=== PATIENT | male | born 1985 | race Two or more races ===

== ENCOUNTER → 2016-08-04 | Outpatient (CLI) | payer BC | LOC: LAB 09:29 | PROVIDERS: ATTEND Internal Medicine | DX: E66.9 Obesity, unspecified (principal) | CPT/HCPCS: 36415; 83036; 84443 ==

== ENCOUNTER → 2016-08-27 | Outpatient (CLI) | payer BC ==
[2016-08-28 07:44] LABS: FOLLICLE STIMULATING HORMONE 26.7 mIU/mL (1.5-12.4); LUTEINIZING HORMONE 13.5 mIU/mL (1.7-8.6)
[2016-08-29 12:27] LABS: TESTOSTERONE FREE (DIRECT) 5.6 pg/mL (8.7-25.1)
== END ==
LOC: OD 08:41
PROVIDERS: ATTEND Urology
DX: N46.01 Organic azoospermia (principal); E34.52 Partial androgen insensitivity syndrome
CPT/HCPCS: 36415; 83001; 83002; 84146; 84402; 84403

== ENCOUNTER → 2016-09-01 | Outpatient (CLI) | payer BC ==
--- NOTE | 2016-09-01 19:50 | RADIOLOGY REPORT (SQ) ---
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 TECHNIQUE: Multiplanar imaging includes noncontrasted T1, T2, FLAIR, diffusion with ADC map and post gadolinium contrast T1 sequences. Images stored on PACS. CONTRAST TYPE AND DOSE: 20 mL MultiHance RENAL FUNCTION: None required. The patient is less than 50 years old. LIMITATIONS: None. FINDINGS: ANATOMY: No anomalies. Normal vascular flow voids. Pituitary fossa normal. CSF SPACES: Normal in size and contour. No hemorrhage. CEREBRUM: Sulci and gyri normal in size and contour. Normal white matter signal on FLAIR imaging. No evidence of hemorrhage, mass, or extraaxial fluid collection. No abnormal enhancement post contrast. POSTERIOR FOSSA: No signal alteration. No hemorrhage. No edema, masses, or mass effect. Internal dorene tory canals, cerebellopontine angles, mastoids normal. No enhancing lesions. No abnormal enhancement post contrast. DIFFUSION IMAGING: Negative for acute or subacute infarction. ORBITS: No masses. Globes normal. PARANASAL SINUSES: There is ethmoid and maxillary sinusitis. OTHER: No other significant finding. IMPRESSION: NORMAL MRI OF THE BRAIN WITHOUT AND WITH INTRAVENOUS GADOLINIUM CONTRAST. TECHNICAL DOCUMENTATION: JOB ID: [id number]- All Rights Reserved
== END ==
LOC: RAD 18:34
PROVIDERS: ATTEND Urology
DX: E22.9 Hyperfunction of pituitary gland, unspecified (principal)
CPT/HCPCS: 70553; A9577